=== PATIENT | male | born 1940 | race Caucasian/White ===

== ENCOUNTER 2018-03-23 11:24 | Emergency (ER) | payer BC ==
[~2018-03-23] VITALS: Ht 172.7 cm; Wt 72.0 kg
[2018-03-23 11:26] VITALS: TEMP 36.3; Ht 172.7 cm; Wt 72.0 kg
--- NOTE | 2018-03-23 11:34 | EMERGENCY ROOM VISIT NOTE ---
History Report prepared by Meri: Liv Richter Under the Supervision of: Magdy WootenO. First contact with patient: 11:31 Chief Complaint: DIARRHEA Stated Complaint: DIARRHEA X 2 DAYS History of Present Illness The patient is a 77 year old male who presents to the Emergency Room with complaints of intermittent diarrhea that started 2 days ago. The patient reports the diarrhea is "uncontrollable." He states he has about 10 episodes per day. He denies any melena, abdominal pain, vomiting, fevers, chills, shortness of breath, chest pain, or bloating. The patient reports he went to [facility] earlier today and was told to come to the ED. He states he has never had these symptoms before. He notes he takes Omeprazole for GERD. He reports his last colonoscopy was 8 months ago and he had a polyp removed. The patient has a history of diverticulosis. He denies any recent change in diet or being around anyone who is sick. The patient's thinks he is disoriented and has trouble answering some questions. Source of History: patient Onset: 2 days ago Position: other Quality: other (uncontrollable) Timing: intermittent Associated Symptoms: No fevers, No chills, No SOB, No vomiting, No abdominal pain, No melena Review of Systems See HPI for pertinent positives & negatives. A total of 10 systems reviewed and were otherwise negative. Past Medical & Surgical Medical Problems: (1) Diverticulosis (2) GERD (gastroesophageal reflux disease) (3) Prostate cancer Surgical Problems: (1) Hx of prostatectomy Social History Smoking Status: Never Smoker Current/Historical Medications Scheduled Omeprazole (Prilosec), 20 MG PO DAILY Allergies Coded Allergies: No Known Allergies (Unverified , 03/23/18) Physical Exam Vital Signs Date Time Temp Pulse Resp B/P (MAP) Pulse Ox O2 Delivery O2 Flow Rate FiO2 03/23/18 14:48 66 18 124/76 98 03/23/18 14:05 68 18 130/72 98 Room Air 03/23/18 13:19 65 18 134/76 92 Room Air 03/23/18 11:26 36.3 92 18 111/79 92 Room Air Physical Exam GENERAL: alert, well appearing, well nourished, no distress, non-toxic EYE EXAM: normal conjunctiva, PERRL and EOM's grossly intact OROPHARYNX: no exudate, no erythema, lips, buccal mucosa, and tongue normal and mucous membranes are moist NECK: supple, no nuchal rigidity, no adenopathy, non-tender LUNGS: Clear to auscultation. Normal chest wall mechanics HEART: no murmurs, S1 normal and S2 normal ABDOMEN: abdomen soft, non-tender, normo-active bowel sounds, no masses, no rebound or guarding. BACK: Back is symmetrical on inspection and there is no deformity, no midline tenderness, no CVA tenderness. SKIN: no rashes and no bruising UPPER EXTREMITIES: upper extremities are grossly normal. LOWER EXTREMITIES: No pitting edema. NEURO EXAM: Normal sensorium, cranial nerves II-XII grossly intact, normal speech, no gross weakness of arms, no gross weakness of legs. Medical Decision & Procedures ER Provider Diagnostic Interpretation: Radiology results have been interpreted by the radiologist and reviewed by me. CT SCAN OF THE ABDOMEN AND PELVIS WITH IV CONTRAST CLINICAL HISTORY: Diarrhea. COMPARISON STUDY: No priors. TECHNIQUE: Following the IV administration of 117 cc of Optiray 320, CT scan of the abdomen and pelvis is performed from the lung bases to the proximal femora. Images are reviewed in the axial, sagittal, and coronal planes. IV contrast was administered without complication. A dose lowering technique was utilized adhering to the principles of ALARA. CT DOSE: 293.18 mGy.cm FINDINGS: Lung bases: The heart is top normal in size and without pericardial effusion. A fat-containing Bochdalek hernia is present at the right lung base. There is bibasilar scarring/atelectasis. No airspace consolidation or pleural effusion is identified. There is a small hiatal hernia. Liver: The contrast-enhanced liver is normal in size, contour, and attenuation. There is no intrahepatic biliary ductal dilatation. The hepatic veins and portal veins are patent. Gallbladder: There are numerous calcified gallstones without CT evidence of acute cholecystitis. Spleen: Spleen is normal in size and attenuation. Scattered calcified granulomas are noted. Pancreas: Moderately atrophic and grossly unremarkable. Adrenal glands: Unremarkable. Kidneys: The contrast enhanced kidneys demonstrate mild cortical atrophy and are without hydronephrosis. The kidneys enhance symmetrically. Small bilateral renal cysts measure up to 2.5 cm. Additional subcentimeter cortical hypodensities also likely represent cysts but are too small for definitive characterization. Abdominal vasculature: The abdominal aorta is normal in course and caliber noting mild atherosclerotic calcification. Bowel: There is moderate sigmoid diverticulosis without CT evidence of acute diverticulitis. No bowel obstruction is seen. There is mild wall thickening and hyperemia seen throughout the colon, greatest involving the distal transverse and descending colon. There are also similar-appearing thick-walled and hyperemic loops of distal small bowel. There is mild perienteric and parenchymal infiltration, and the appearance is consistent with a nonspecific enterocolitis. The appendix is well-visualized and normal. Peritoneum: There is trace free fluid in the pelvis. No intraperitoneal free air is seen. There is a fat-containing umbilical hernia. Lymphadenopathy: None. Pelvic viscera: Numerous surgical clips are present throughout the pelvis. The prostate gland is surgically absent. The bladder is normal as visualized. There is evidence of previous right inguinal herniorrhaphy. Skeletal structures: The skeletal structures are osteopenic. No lytic or blastic lesions are seen. There are healed left pubic ring fractures. Small bone islands are noted in the bodies of L4 and L5. IMPRESSION: 1. Findings are consistent with a nonspecific enterocolitis, likely on an infectious or inflammatory basis. Clinical correlation will be required. 2. Trace free fluid in the pelvis is nonspecific and likely reactive. 3. Moderate sigmoid diverticulosis without CT evidence of acute diverticulitis. 4. Cholelithiasis without CT evidence of acute cholecystitis. 5. Additional findings as above. Electronically signed by: Matias Romeo M.D. 03/23/2018 1:53 PM Dictated Date/Time: 03/23/2018 1:43 PM Laboratory Results 03/23/18 12:08 Red Blood Count 5.27, Mean Corpuscular Volume 90.5, Mean Corpuscular Hemoglobin 30.0, Mean Corpuscular Hemoglobin Concent 33.1, Mean Platelet Volume 10.9, Neutrophils (%) (Auto) 78.0, Lymphocytes (%) (Auto) 10.6, Monocytes (%) (Auto) 11.0, Eosinophils (%) (Auto) 0.0, Basophils (%) (Auto) 0.2, Neutrophils # (Auto ) 3.90, Lymphocytes # (Auto) 0.53, Monocytes # (Auto) 0.55, Eosinophils # (Auto ) 0.00, Basophils # (Auto) 0.01 03/23/18 12:08 Test 03/23/18 12:08 03/23/18 12:16 White Blood Count 5.00 K/uL (4.8-10.8) Red Blood Count 5.27 M/uL (4.7-6.1) Hemoglobin 15.8 g/dL (14.0-18.0) Hematocrit 47.7 % (42-52) Mean Corpuscular Volume 90.5 fL (80-100) Mean Corpuscular Hemoglobin 30.0 pg (25-34) Mean Corpuscular Hemoglobin Concent 33.1 g/dl (32-36) Platelet Count 172 K/uL (130-400) Mean Platelet Volume 10.9 fL (7.4-10.4) Neutrophils (%) (Auto) 78.0 % Lymphocytes (%) (Auto) 10.6 % Monocytes (%) (Auto) 11.0 % Eosinophils (%) (Auto) 0.0 % Basophils (%) (Auto) 0.2 % Neutrophils # (Auto) 3.90 K/uL (1.4-6.5) Lymphocytes # (Auto) 0.53 K/uL (1.2-3.4) Monocytes # (Auto) 0.55 K/uL (0.11-0.59) Eosinophils # (Auto) 0.00 K/uL (0-0.5) Basophils # (Auto) 0.01 K/uL (0-0.2) RDW Standard Deviation 42.9 fL (36.4-46.3) RDW Coefficient of Variation 12.9 % (11.5-14.5) Immature Granulocyte % (Auto) 0.2 % Immature Granulocyte # (Auto) 0.01 K/uL (0.00-0.02) Anion Gap 8.0 mmol/L (3-11) Est Creatinine Clear Calc Drug Dose 63.3 ml/min Estimated GFR () 88.6 Estimated GFR (Non- 76.5 BUN/Creatinine Ratio 9.4 (10-20) Calcium Level 8.6 mg/dl (8.5-10.1) Magnesium Level 1.8 mg/dl (1.8-2.4) Total Bilirubin 0.7 mg/dl (0.2-1) Aspartate Amino Transf (AST/SGOT) 19 U/L (15-37) Alanine Aminotransferase (ALT/SGPT) 22 U/L (12-78) Alkaline Phosphatase 75 U/L (45-117) Troponin I < 0.015 ng/ml (0-0.045) Pro-B-Type Natriuretic Peptide 132 pg/ml (0-1800) Total Protein 7.3 gm/dl (6.4-8.2) Albumin 3.6 gm/dl (3.4-5.0) Globulin 3.7 gm/dl (2.5-4.0) Albumin/Globulin Ratio 1.0 (0.9-2) Lipase 79 U/L (73-393) Bedside Lactic Acid Venous 1.69 mmol/L (0.90-1.70) Date/Time Source Procedure Growth Status 03/23/18 12:49 Stool C.difficile Toxin B Gene (PCR) - Final No C. difficile toxin B gene detected Complete Laboratory results per my review. Medications Administered Medications (Trade) Dose Ordered Sig/Marian Route Start Time Stop Time Status Last Admin Dose Admin Sodium Chloride 1,000 ml @ 250 mls/hr Q4H STAT IV 03/23/18 11:47 03/23/18 15:46 DC 03/23/18 11:47 250 MLS/HR Potassium Chloride (Klor-Con M10) 40 meq NOW STAT PO 03/23/18 12:48 03/23/18 12:49 DC 03/23/18 12:48 40 MEQ ECG Per My Interpretation Indication: other (diarrhea) Rate (beats per minute): 86 Rhythm: sinus rhythm Findings: no acute ischemic change, no ectopy, other (normal axis, normal intervals) ED Course 1135: The patient was evaluated in room B5. A complete history and physical exam was performed. 1147: Ordered Sodium Chloride 1000 ml @ 250 mls/hr IV. 1248: Ordered Potassium Chloride 40 meq PO. 1355: I updated the patient on his results and treatment plan. 1430: Upon reevaluation, the patient is feeling better. I discussed the findings and the treatment plan with the patient. He verbalizes agreement and understanding. The patient is ready for discharge. Medical Decision Differential Diagnosis: Etiologies include: Colitis, viral syndrome, small bowel obstruction, mesenteric ischemia, medication reaction, food borne illness, or enteritis Patient well-appearing here and only single episode of diarrhea here. Stool culture sent as a precaution. Patient with no abdominal pain on initial or repeat evaluations. Patient hemodynamically stable throughout, labs and imaging reassuring. Discussed with him possible viral syndrome. I feel patient is low risk for occult bacterial infection. No evidence of bacteremia/ sepsis. I do not suspect mesenteric ischemia, bowel obstruction, volvulus, perforation, GI bleed. Discussed with patient follow-up with family doctor, pending stool cultures, symptoms to watch and return for, diet and hydration, he verbalized understanding was agreeable with plan. Medication Reconcilliation Current Medication List: was personally reviewed by me Blood Pressure Screening Patient's blood pressure: Normal blood pressure Impression Primary Impression: Diarrhea Additional Impressions: Hypokalemia Enterocolitis Scribe Attestation The scribe's documentation has been prepared under my direction and personally reviewed by me in its entirety. I confirm that the note above accurately reflects all work, treatment, procedures, and medical decision making performed by me. Departure Information Dispostion Home / Self-Care Patient Instructions My [facility] Additional Instructions Please continue sipping clear liquids at frequent intervals to stay well- hydrated. You may eat as tolerated. If you develop worsening diarrhea, noticed black or bloody stools, develop abdominal pain, back pain, fevers or chills, nausea vomiting, dizziness, you have any other new concerns, please return to the ER medially. Your stool was sent for culture. If it is abnormal , you will receive a phone call with additional instructions and possibly medications. Problem Qualifiers Primary Impression: Diarrhea Diarrhea type: unspecified type Qualified Codes: R19.7 - Diarrhea, unspecified
[2018-03-23] MEDS ORDERED: SODIUM CHLORIDE 0.9% 1000ML 1,000 ML IV STA (11:47)
[2018-03-23 12:24] LABS: BASO % 0.2 %; BASO ABS # 0.01 K/uL (0-0.2); HEMATOCRIT 47.7 % (42-52); HEMOGLOBIN 15.8 g/dL (14.0-18.0); IG# 0.01 K/uL (0.00-0.02); LYMPH % 10.6 %; LYMPH ABS # 0.53 K/uL (1.2-3.4); MEAN CELL VOLUME 90.5 fL (80-100); MEAN CORPUSCULAR HGB CONC 33.1 g/dl (32-36); MEAN PLATELET VOLUME 10.9 fL (7.4-10.4); MONO ABS # 0.55 K/uL (0.11-0.59); PLATELET COUNT 172 K/uL (130-400); RED CELL DISTRIBUTION WIDTH CV 12.9 % (11.5-14.5); RED CELL DISTRIBUTION WIDTH SD 42.9 fL (36.4-46.3)
[2018-03-23] MEDS ORDERED: PRLSR20 PO (12:25)
[2018-03-23 12:47] LABS: ALBUMIN 3.6 gm/dl (3.4-5.0); ALKALINE PHOSPHATASE 75 U/L (45-117); ALT/SGPT 22 U/L (12-78); AST/SGOT 19 U/L (15-37); BLOOD UREA NITROGEN 9 mg/dl (7-18); CALCIUM 8.6 mg/dl (8.5-10.1); CARBON DIOXIDE 25 mmol/L (21-32); CREATININE 0.96 mg/dl (0.60-1.40); GLUCOSE 85 mg/dl (70-99); LIPASE 79 U/L (73-393); POTASSIUM 3.3 mmol/L (3.5-5.1); SODIUM 132 mmol/L (136-145); TOTAL PROTEIN 7.3 gm/dl (6.4-8.2)
[2018-03-23] MEDS ORDERED: POTASSIUM CHLORIDE 10 MEQ TABCR PO STA (12:48)
[2018-03-23] MEDS ORDERED: OPTIRAY 320 IV PRN (13:00)
--- NOTE | 2018-03-23 13:55 | DIAGNOSTIC IMAGING REPORT ---
CT SCAN OF THE ABDOMEN AND PELVIS WITH IV CONTRAST CLINICAL HISTORY: Diarrhea. COMPARISON STUDY: No priors. TECHNIQUE: Following the IV administration of 117 cc of Optiray 320, CT scan of the abdomen and pelvis is performed from the lung bases to the proximal femora. Images are reviewed in the axial, sagittal, and coronal planes. IV contrast was administered without complication. A dose lowering technique was utilized adhering to the principles of ALARA. CT DOSE: 293.18 mGy.cm FINDINGS: Lung bases: The heart is top normal in size and without pericardial effusion. A fat-containing Bochdalek hernia is present at the right lung base. There is bibasilar scarring/atelectasis. No airspace consolidation or pleural effusion is identified. There is a small hiatal hernia. Liver: The contrast-enhanced liver is normal in size, contour, and attenuation. There is no intrahepatic biliary ductal dilatation. The hepatic veins and portal veins are patent. Gallbladder: There are numerous calcified gallstones without CT evidence of acute cholecystitis. Spleen: Spleen is normal in size and attenuation. Scattered calcified granulomas are noted. Pancreas: Moderately atrophic and grossly unremarkable. Adrenal glands: Unremarkable. Kidneys: The contrast enhanced kidneys demonstrate mild cortical atrophy and are without hydronephrosis. The kidneys enhance symmetrically. Small bilateral renal cysts measure up to 2.5 cm. Additional subcentimeter cortical hypodensities also likely represent cysts but are too small for definitive characterization. Abdominal vasculature: The abdominal aorta is normal in course and caliber noting mild atherosclerotic calcification. Bowel: There is moderate sigmoid diverticulosis without CT evidence of acute diverticulitis. No bowel obstruction is seen. There is mild wall thickening and hyperemia seen throughout the colon, greatest involving the distal transverse and descending colon. There are also similar-appearing thick-walled and hyperemic loops of distal small bowel. There is mild perienteric and parenchymal infiltration, and the appearance is consistent with a nonspecific enterocolitis. The appendix is well-visualized and normal. Peritoneum: There is trace free fluid in the pelvis. No intraperitoneal free air is seen. There is a fat-containing umbilical hernia. Lymphadenopathy: None. Pelvic viscera: Numerous surgical clips are present throughout the pelvis. The prostate gland is surgically absent. The bladder is normal as visualized. There is evidence of previous right inguinal herniorrhaphy. Skeletal structures: The skeletal structures are osteopenic. No lytic or blastic lesions are seen. There are healed left pubic ring fractures. Small bone islands are noted in the bodies of L4 and L5. IMPRESSION: 1. Findings are consistent with a nonspecific enterocolitis, likely on an infectious or inflammatory basis. Clinical correlation will be required. 2. Trace free fluid in the pelvis is nonspecific and likely reactive. 3. Moderate sigmoid diverticulosis without CT evidence of acute diverticulitis. 4. Cholelithiasis without CT evidence of acute cholecystitis. 5. Additional findings as above. Electronically signed by: Matias Romeo M.D. 03/23/2018 1:53 PM Dictated Date/Time: 03/23/2018 1:43 PM
[2018-03-23 14:48] VITALS: BP 124/76; PULSE 66; O2SAT 98
== END 2018-03-23 14:59 | disposition home or self-care (01) ==
LOC: C.EDB 11:25
DX: K52.9 Noninfective gastroenteritis and colitis, unspecified (principal); E87.6 Hypokalemia; K21.9 Gastro-esophageal reflux disease without esophagitis; Z85.46 Personal history of malignant neoplasm of prostate